=== PATIENT | female | born 1985 | race Caucasian/White ===

== ENCOUNTER → 2018-12-20 | Outpatient (CLI) | payer OTHER ==
[2018-12-20 11:52] LABS: BASO # 0.1 10^3/uL (0.0-0.2); BASO % 0.9 % (0.0-1.0); EOS # 0.2 10^3/uL (0.0-0.50); EOS % 3.5 % (0.0-3.0); HEMATOCRIT 42.1 % (36.0-47.0); HEMOGLOBIN 14.4 g/dl (12.0-15.5); LYMPH # 1.7 10^3/uL (1.5-4.5); LYMPH % 32.2 % (24.0-44.0); MEAN CORPUSCULAR HEMOGLOBIN 30.3 pg (27.0-33.0); MEAN CORPUSCULAR HGB CONC 34.2 g/dl (32.0-36.5); MEAN CORPUSCULAR VOLUME 88.6 fl (80.0-96.0); MONO # 0.4 10^3/uL (0.0-0.8); MONO % 7.4 % (0.0-5.0); NEUTROPHILS % 55.6 % (36.0-66.0); PLATELET COUNT, AUTOMATED 162 10^3/uL (150-450); RED BLOOD COUNT 4.75 10^6/uL (4.00-5.40); WHITE BLOOD COUNT 5.4 10^3/uL (4.0-10.0)
[2018-12-20 12:52] LABS: BLOOD UREA NITROGEN 14 MG/DL (7-18); CALCIUM LEVEL 8.9 MG/DL (8.5-10.1); CARBON DIOXIDE LEVEL 30 MEQ/L (21-32); CHLORIDE LEVEL 104 MEQ/L (98-107); CREATININE FOR GFR 0.59 MG/DL (0.55-1.30); FREE T4 0.92 NG/DL (0.76-1.46); GLOMERULAR FILTRATION RATE > 60.0 (>60); GLUCOSE, FASTING 78 MG/DL (70-100); POTASSIUM SERUM 4.1 MEQ/L (3.5-5.1); SODIUM LEVEL 140 MEQ/L (136-145)
== END ==
LOC: M LRY 09:32
PROVIDERS: ATTEND Physician Assistant
DX: F41.9 Anxiety disorder, unspecified (principal)

== ENCOUNTER → 2019-01-24 | Outpatient (CLI) | payer OTHER ==
--- NOTE | 2019-01-24 11:00 | REP ---
Clinical: Right inguinal pain. Possible hernia. Technique: Real time hassan scale and color evaluation using linear high frequency transducer. Findings: Ultrasound examination demonstrates a small fat containing right inguinal hernia. Inguinal defect measures approximately 5.7 - 6.1 mm. No associated bowel herniation is appreciated. Impression: Small nonreducible fat-containing right inguinal hernia. Electronically Signed by Shaun Merchant MD 01/24/2019 10:51 A
== END ==
LOC: M RAD 09:44
PROVIDERS: ATTEND Surgery
DX: K40.90 Unilateral inguinal hernia, without obstruction or gangrene, not specified as recurrent (principal)

== ENCOUNTER 2019-03-14 10:22 | Day surgery (SDC) | payer OTHER ==
[~2019-03-14] VITALS: Ht 172.7 cm; Wt 65.8 kg
[~2019-03-14 10:22] MED LIST: LR 1,000 ML IV ONE; PRENTAB55 PO
[2019-03-14] MEDS ORDERED: propofoL 200 MG/20 ML VIAL As Ordered ONE (10:54)
[2019-03-14] MEDS ORDERED: ACETAMINOPHEN 1000MG 100ML IV BTL (OFIRMEV) (J0131 PER 10MG) As Ordered ONE (10:54)
[2019-03-14] MEDS ORDERED: ONDANSETRON 4MG/2ML VIAL (J2405) As Ordered ONE ×2 (10:54→14:47)
[2019-03-14] MEDS ORDERED: ROCURONIUM BROMIDE 50 MG/5 ML VIAL As Ordered ONE ×2 (10:54→13:16)
[2019-03-14] MEDS ORDERED: LIDOCAINE 2% INJ 100 MG/5 ML SDV (FOR ANES.) As Ordered ONE (10:54)
[2019-03-14] MEDS ORDERED: dexameTHASONE 4 MG/ML 1ML VIAL (J1100) As Ordered ONE (10:54)
[2019-03-14 11:06] LABS: URINE PREG TEST NEGATIVE (NEGATIVE)
[2019-03-14] MEDS ORDERED: fentaNYL 250 MCG/5 ML INJECTION (J3010) As Ordered ONE (11:56)
[2019-03-14] MEDS ORDERED: MIDAZOLAM INJ 2 MG/2 ML VIAL (J2250) As Ordered ONE (11:56)
[2019-03-14] MEDS ORDERED: BUPIVACAINE HCL 0.25% 30 ML VIAL As Ordered ONE (12:01)
[2019-03-14] MEDS ORDERED: NORC1TAB7 PO (12:03)
[2019-03-14] MEDS ORDERED: SCOPOLAMINE 1MG TRANSDERMAL PATCH As Ordered ONE (12:13)
[2019-03-14] MEDS ORDERED: SCOPOLAMINE 1MG TRANSDERMAL PATCH TOP ONE (13:00)
[2019-03-14] MEDS ORDERED: GLYCOPYRROLATE INJ 0.2 MG/ML 2 ML VIAL As Ordered ONE (13:02)
[2019-03-14] MEDS ORDERED: NEOSTIGMINE 10 MG/10 ML VIAL (J2710) As Ordered ONE (13:02)
[2019-03-14] MEDS ORDERED: KETOROLAC 60 MG/2 ML VIAL (J1885) As Ordered ONE (13:04)
[2019-03-14] MEDS ORDERED: oxyCODONE 5MG TAB As Ordered ONE (14:47)
[2019-03-14] MEDS: ONDANSETRON 4MG/2ML VIAL (J2405) IV PRN ×2 (14:54→15:35)
[2019-03-14] MEDS: oxyCODONE 5MG TAB PO PRN ×2 (15:15→16:06)
[2019-03-14] MEDS ORDERED: NORCO, ANEXSIA 5/325MG TABLET (HYDROcodone/ACETAMINOPHEN) PO PRN (15:45)
[2019-03-14] MEDS ORDERED: LR 1,000 ML IV SCH (15:45)
[2019-03-14] MEDS ORDERED: ACETAMINOPHEN TAB 650MG DOSE (2X325MG) PO PRN (15:45)
[2019-03-14] MEDS ORDERED: fentaNYL 100 MCG/2 ML INJECTION (J3010) IV PRN (15:45)
[2019-03-14] MEDS ORDERED: METOCLOPRAMIDE INJ 10MG/2ML VIAL (J2765) As Ordered ONE (15:53)
[2019-03-14] MEDS ORDERED: METOCLOPRAMIDE INJ 10MG/2ML VIAL (J2765) IV PRN (16:00)
[2019-03-14 18:00] VITALS: BP 109/70
--- NOTE | 2019-03-17 09:04 | RO ---
DATE OF PROCEDURE: 03/14/2019 PREOPERATIVE DIAGNOSIS: Right inguinal hernia. POSTOPERATIVE DIAGNOSIS: Small indirect right inguinal hernia of preperitoneal fat. PROCEDURE PERFORMED: Is a robotic-assisted laparoscopic right inguinal hernia repair with mesh. SURGEON: Dr. Faustin SUPERVISOR [employer]: PRAVEEN Parra who was instrumental in assisting with trocar placement, management of the robotic instruments and closure of the incisions. ANESTHESIA: General. INDICATIONS FOR PROCEDURE: The patient 33-year-old woman who during a recent had noted an intermittent bulge in the right inguinal area. Her description was perfectly consistent with a small inguinal hernia. On physical examination, a hernia defect was not palpable. She is now for a robotic-assisted laparoscopic right inguinal hernia repair. OPERATIVE PROCEDURE: The patient was placed on the operating table in a supine position. She was placed under general endotracheal anesthesia. The patient's abdomen was prepped and draped in a sterile fashion. 0.25% Marcaine was infiltrated at each of the trocar sites as necessary. An initial incision was made approximately 2-3 cm above the umbilicus and approximately 2-3 cm to the left of the midline. A Veress needle was inserted and after positive hanging drop test the abdomen was insufflated with carbon dioxide gas. A 8 mm robotic port was placed over the laparoscope and advanced through the abdominal wall without difficulty. Initial examination showed a normal liver and visualized portions of the small and large bowel and stomach appeared normal. Inspection down in the lower abdomen and pelvis showed no definite peritoneal sac on either the right or left. A second 8 mm port was placed in the right midabdomen and a third in the left midabdomen. The patient cart of the XI robot was brought into position and docked to the camera port. Targeting took place on the mid pelvis and the additional arms were docked and instruments placed. The patient had been tilted slightly to a Trendelenburg position. I then moved to the control console and proceeded with the robotic portion of the procedure. Given her very typical history of findings of a hernia, I elected to proceed with repair. An arcuate incision was made in the peritoneum in the right lower quadrant to expose the inguinal hernia region. The peritoneal flap was developed from the superior to inferior. The inferior epigastric vessels were clearly identified and preserved. The round ligament was identified coursing into the internal inguinal ring. There was some preperitoneal fat identified within the internal ring and this was withdrawn and a portion of this was excised and placed into the lower abdomen for later removal. The internal ring did appear slightly dilated. The fascial ligament medially was identified. A medium Bard right-sided 3-D Max light mesh was selected and this was inserted into the abdomen and placed across the inguinal area beneath the peritoneal flap. A single 2-0 Vicryl suture was placed to fix this medially to the ligament. This appeared to lie nicely across the area of the inguinal floor internally. A single suture of 2-0 Vicryl was placed in the peritoneal flap to close a small defect at the edge of the round ligament. The peritoneal flap was then closed with a running suture of 2-0 absorbable V-Loc suture. The closure was excellent. The needles were removed and accounted for. The piece of removed preperitoneal fat was removed from the abdomen as well. The patient was returned to a flat position. The robotic instruments were removed, and the abdomen deflated and the robot undocked. The three trocar sites were closed with buried Vicryl sutures and Steri-Strips in light dressings were applied. The patient tolerated the procedure well without apparent complication. She was awakened in the operating room, extubated, moved to the recovery room in stable condition.
== END 2019-03-14 18:10 | disposition home or self-care (01) ==
LOC: M SDC 10:22
PROVIDERS: ATTEND Surgery
DX: K40.90 Unilateral inguinal hernia, without obstruction or gangrene, not specified as recurrent (principal)
CPT/HCPCS: 49650; 84703; C1781; J0131; J1100; J1885; J2405; J2710; J2765; J3010

== ENCOUNTER → 2019-06-20 | Outpatient (REF) | payer OTHER ==
[~2019-06-20] MED LIST changes: -LR 1,000 ML IV ONE; +NORC1TAB7 PO
[2019-06-20 13:48] LABS: HEMATOCRIT 42.1 % (36.0-47.0); HEMOGLOBIN 14.4 g/dl (12.0-15.5); MEAN CORPUSCULAR HEMOGLOBIN 30.3 pg (27.0-33.0); MEAN CORPUSCULAR HGB CONC 34.2 g/dl (32.0-36.5); MEAN CORPUSCULAR VOLUME 88.6 fl (80.0-96.0); PLATELET COUNT, AUTOMATED 192 10^3/uL (150-450); RED BLOOD COUNT 4.75 10^6/uL (4.00-5.40); WHITE BLOOD COUNT 8.8 10^3/uL (4.0-10.0)
[2019-06-20 13:59] LABS: HCG, SERUM QUANTITATIVE 332 MIU/ML
[2019-06-21 10:15] LABS: HIV 1&2 SCREEN CENTAUR NEGATIVE (NEGATIVE)
[2019-06-21 12:01] LABS: RUBELLA IgG QUALITATIVE IMMUNE (IMMUNE)
== END ==
LOC: M LAB REF 12:49
PROVIDERS: ATTEND Nurse Practitioner Women's Health
DX: O36.80X0 Pregnancy with inconclusive fetal viability, not applicable or unspecified (principal)

== ENCOUNTER → 2019-10-19 | Outpatient (CLI) | payer OTHER ==
--- NOTE | 2019-10-19 20:07 | REP ---
Clinical: Anatomical evaluation. Comparison: None . Findings: Examination demonstrates a single live intrauterine in transverse (head to maternal right) presentation. motion is identified by technologist. Placenta is noted anterior and grade I without evidence for placenta previa or abruption. Amniotic fluid volume is normal. Cervix measures 3.7 cm in length and appears closed. No evidence for nuchal cord. Gestational age by current measurements 20 weeks 6 days with KELVIN 03/01/2020 . FHR equals 149 beats per minute. BPD 4.9 cm 20 weeks 6 days HC 18.1 cm 20 weeks 4 days AC 16.2 cm 21 weeks 2 days FL 3.7 cm 21 weeks 5 days HL 3.5 cm 22 weeks 1 day HC/AC ratio 1.12 Estimated weight 419 grams ( 63rd percentile). Anatomical assessment demonstrates normal structures including cranium, choroid plexus, cavum, cerebellum/posterior fossa, facial features, lungs, four-chamber heart/ventricular outflow tracts, diaphragm, stomach, cord insertion/three-vessel cord, kidneys/bladder, spine, and extremities. Impression: Single live intrauterine in transverse lie demonstrating appropriate estimated weight. Anatomical assessment is complete and normal. No gross abnormalities are identified. Electronically Signed by Shaun Merchant MD 10/19/2019 07:58 P
== END ==
LOC: M WHC 11:06
PROVIDERS: ATTEND Advanced Practice Midwife
DX: Z36.3 Encounter for antenatal screening for malformations (principal); Z3A.20 20 weeks gestation of pregnancy

== ENCOUNTER → 2019-11-28 | Outpatient (REF) | payer OTHER ==
[2019-11-28 11:27] LABS: HEMATOCRIT 37.7 % (36.0-47.0); HEMOGLOBIN 12.9 g/dl (12.0-15.5); MEAN CORPUSCULAR HEMOGLOBIN 30.2 pg (27.0-33.0); MEAN CORPUSCULAR HGB CONC 34.2 g/dl (32.0-36.5); MEAN CORPUSCULAR VOLUME 88.3 fl (80.0-96.0); PLATELET COUNT, AUTOMATED 146 10^3/uL (150-450); RED BLOOD COUNT 4.27 10^6/uL (4.00-5.40); WHITE BLOOD COUNT 9.3 10^3/uL (4.0-10.0)
== END ==
LOC: M PLALAB 08:20
PROVIDERS: ATTEND Advanced Practice Midwife
DX: Z34.81 Encounter for supervision of other normal pregnancy, first trimester (principal)

== ENCOUNTER → 2020-02-01 | Outpatient (REF) | payer OTHER | LOC: M SFHCWAGY 16:49 | PROVIDERS: ATTEND Advanced Practice Midwife | DX: Z34.83 Encounter for supervision of other normal pregnancy, third trimester (principal) ==

== ENCOUNTER → 2020-02-08 | Outpatient (REF) | payer OTHER | LOC: M PLALAB 09:48 | PROVIDERS: ATTEND Advanced Practice Midwife | DX: Z34.83 Encounter for supervision of other normal pregnancy, third trimester (principal) ==

== ENCOUNTER 2020-02-15 02:00 | Inpatient (IN) | payer OTHER ==
[2020-02-15] VITALS (9 sets, daily range): BP systolic 108–134; BP diastolic 67–79
[~2020-02-15] VITALS: Ht 172.7 cm; Wt 80.0 kg
[2020-02-15] MEDS ORDERED: OXYTOCIN 30 UNITS IN 0.9% NaCl 500ML IV BAG (J2590) As Ordered ONE (02:18)
[2020-02-15 02:30] LABS: HEMATOCRIT 38.4 % (36.0-47.0); HEMOGLOBIN 13.6 g/dl (12.0-15.5); MEAN CORPUSCULAR HEMOGLOBIN 30.2 pg (27.0-33.0); MEAN CORPUSCULAR HGB CONC 35.4 g/dl (32.0-36.5); MEAN CORPUSCULAR VOLUME 85.3 fl (80.0-96.0); PLATELET COUNT, AUTOMATED 154 10^3/uL (150-450); WHITE BLOOD COUNT 17.2 10^3/uL (4.0-10.0)
[2020-02-15] MEDS ORDERED: LACTATED RINGER'S 1000 ML IV ONE (02:30)
[2020-02-15] MEDS ORDERED: IBUPROFEN 800 MG TAB As Ordered ONE (03:25)
[2020-02-15] MEDS ORDERED: OXYTOCIN DRIP 30 UNITS in IV 1 EA IV SCH (04:01)
[2020-02-15] MEDS ORDERED: IBUPROFEN 800 MG TAB PO PRN (04:15)
[2020-02-15] MEDS ORDERED: DOCUSATE SODIUM 100 MG CAP PO PRN (04:15)
[2020-02-15] MEDS ORDERED: IBUPROFEN 600MG TAB PO PRN (04:15)
[2020-02-15] MEDS ORDERED: ACETAMINOPHEN 500 MG TAB PO PRN (04:15)
[2020-02-15] MEDS ORDERED: RHOGAM 300 MCG (1500 IU) INJ (J2790) IM SCH (04:15)
[2020-02-15] MEDS ORDERED: ACETAMINOPHEN TAB 650MG DOSE (2X325MG) PO PRN (04:15)
[2020-02-15] MEDS ORDERED: DIBUCAINE 1% OINTMENT 30GM TOP PRN (04:15)
[2020-02-15] MEDS ORDERED: ANUSOL HC CREAM 30GM TOP PRN (04:15)
[2020-02-15] MEDS ORDERED: LIDOCAINE 1% MDV 20ML VIAL INFIL ONE (04:15)
[2020-02-15] MEDS ORDERED: METHYLERGONOVINE MALEATE 0.2 MG TAB PO PRN (04:15)
[2020-02-15] MEDS ORDERED: MEASLES,MUMPS,RUBELLA VACCINE INJ (MMR-II) (90707) SC SCH (04:15)
--- NOTE | 2020-02-15 08:48 | HPE ---
DATE OF ADMISSION: 02/15/2020 Anastasiya is a 34-year-old 2, para 1-0-0-1. She has had 38-2/7 weeks gestation with an estimated date of confinement (EDC) of 02/27/2020 based on last period and confirmed by first trimester ultrasound. She presents to labor and delivery today with strong contractions. She reports they started at approximately 2000 and have increase in been increasing in pain and frequency. She denies vaginal bleeding or leakage of fluid. The fetus is active. care was initiated at [facility] with transfer of care to [facility] at 20 weeks gestation. Her course has been uncomplicated. OBSTETRIC HISTORY: March 2018, 38 weeks gestation, spontaneous vaginal delivery, male fetus, 6 pounds 7 ounces uncomplicated. OBSTETRIC LABS: O+, antibody screen negative, syphilis negative, gonorrhea and chlamydia negative. Hepatitis B surface antigen negative. Hepatitis C antibody nonreactive. Human immunodeficiency virus (HIV) nonreactive, rubella immune. Gestational diabetic screening normal at 91 and her Group B streptococcus (GBS) is negative. Urine culture no growth. PAST MEDICAL HISTORY: Noncontributory. SURGERIES: Hernia right knee and wisdom tooth extraction. FAMILY HISTORY: Myocardial infarction, breast cancer. SOCIAL HISTORY: The patient is . She is a nonsmoker. She denies alcohol and drug use. No history of any sexually transmitted infections and she denies history of abuse physical, sexual and emotional ALLERGIES: No known drug allergies. CURRENT MEDICATIONS: vitamin OBJECTIVE: Temperature 98, pulse 93, respirations 20, blood pressure (BP) is 127/73. She is alert and oriented x3. She appears extremely uncomfortable with her current contractions. She is deep breathing focusing and moaning with her contractions. heart rate is 140 with moderate variability. There is no accelerations and there are occasional variable decelerations. Contractions appear to be every 3-4 minutes. They do palpate moderate, abdomen is gravid, cephalic presentation with estimated weight of 7 pounds. Sterile vaginal exam: 8 cm dilated 100% effaced, minus two station. Membranes are intact. Scant show with the exam. ASSESSMENT: Intrauterine at 38-2/7 weeks, heart rate category one, active labor. PLAN: Admit the patient to labor and delivery. Routine labs. Out of bed ad janna. Saline lock at this time. The patient is contemplating an epidural; and if she chooses not to have epidural, we will perform assisted rupture of membranes to augment her labor. I do anticipate continued labor progress and a vaginal delivery. She has been verbally consented for surgery and blood products if necessary.
[2020-02-15] MEDS: PRENATAL VITAMINS CHEWABLE TABLET PO SCH (09:03)
--- NOTE | 2020-02-15 10:24 | DN ---
DATE OF DELIVERY: 02/15/2020 DELIVERY NOTE: Anastasiya is a 34-year-old, 2, para 2-0-0-2 now, was admitted to labor and delivery in active labor. She coped with her labor physiologically. She reached complete dilation at 0239 hours. She had assisted rupture of membranes for a large amount of clear fluid at 0238 hours. She pushed to a spontaneous vaginal delivery of a live female infant in right occiput anterior (GEORGI) position with restitution to occiput transverse (ROT) position at 0255 hours. There was a nuchal cord times one that was tight and reduced with a somersault maneuver at the time of delivery. The was placed on maternal abdomen crying and active. The mouth and nares were bulb suctioned. The cord was clamped times two once pulsation ceased, then cut by the father of the baby under my direction. Cord blood was obtained. Spontaneous expulsion of an intact placenta by Asher mechanism was at 0306 hours. Uterine hemostasis achieved with intravenous (IV) Pitocin rapid infusion and uterine fundal massage. Estimated blood loss 350 mL. Perineum and vagina inspected. Noted to have a first-degree perineal laceration as well as a right labial laceration. The vaginal laceration was infiltrated with 1% lidocaine and repaired with #3-0 Vicryl Rapide in the usual fashion. Right labial laceration was hemostatic. No need for any repair. Kane female weighed 2900 grams (6 pounds 6 ounces), 8 and 9. The mom is going to breastfeed her daughter and the family is undecided as the 's name at this time. At the close of delivery, lap counts, needle counts and instrument counts were correct and verified.
[2020-02-16 06:00] VITALS: BP 119/62
--- NOTE | 2020-02-16 07:28 | IPNPDOC ---
Progress Note Date of Service: Feb 16, 2020 Day#: 1 Progress Note SUBJECT: Doing well without complaints. Ambulating, voiding and pain is well-c ontrolled. Reports minimal lochia. OBJECTIVE: VITAL SIGNS: Within normal limits, afebrile. Alert and oriented times three. Abdomen: Fundus firm at U-2. Soft, NTTP. Ext: neg calf tenderness. ASSESSMENT: day #1 status post normal spontaneous vaginal delivery. Recovering in stable condition. PLAN: 1. Continue routine care 2. Discharge plans for tomorrow VS, I&O, 24H, Fishbone Vital Signs/I&O Vital Signs Date Time Temp Pulse Resp B/P (MAP) Pulse Ox O2 Delivery O2 Flow Rate FiO2 02/16/20 06:00 98.4 76 18 119/62 (81) 02/15/20 18:13 97 Room Air I&O- Last 24 Hours up to 6 AM 02/16/20 06:00 Output Total 800 ml Balance -800 ml DENA COOPER MD. Feb 16, 2020 07:28
[2020-02-16] MEDS: PRENATAL VITAMINS CHEWABLE TABLET PO SCH (07:32)
== END 2020-02-16 19:20 | disposition home or self-care (01) | DRG 807 ==
LOC: M LDO 02:00 → M LDI 02:06 → M OBS 04:53
PROVIDERS: ADMIT Advanced Practice Midwife; ATTEND Advanced Practice Midwife
PROC: 10E0XZZ Delivery of Products of Conception, External Approach (ICD-10-PCS; principal; 2020-02-15)
PROC: 10907ZC Drainage of Amniotic Fluid, Therapeutic from Products of Conception, Via Natural or Artificial Opening (ICD-10-PCS; 2020-02-15)
PROC: 0HQ9XZZ Repair Perineum Skin, External Approach (ICD-10-PCS; 2020-02-15)
DX: O69.1XX0 Labor and delivery complicated by cord around neck, with compression, not applicable or unspecified (principal); Z37.0 Single live birth; Z3A.38 38 weeks gestation of pregnancy; O70.0 First degree perineal laceration during delivery

== ENCOUNTER → 2020-11-01 | Outpatient (CLI) | payer OTHER ==
[2020-11-01 14:02] LABS: BASO % 0.7 % (0.0-1.0); EOS # 0.3 10^3/uL (0.0-0.5); HEMATOCRIT 44.7 % (36.0-47.0); HEMOGLOBIN 15.2 g/dl (12.0-15.5); LYMPH # 1.6 10^3/uL (1.5-5.0); LYMPH % 26.5 % (24.0-44.0); MEAN CORPUSCULAR HEMOGLOBIN 30.2 pg (27.0-33.0); MEAN CORPUSCULAR VOLUME 88.7 fl (80.0-96.0); MONO # 0.4 10^3/uL (0.0-0.8); MONO % 7.3 % (2.0-8.0); NEUTROPHILS # 3.6 10^3/uL (1.5-8.5); NEUTROPHILS % 60.3 % (36.0-66.0); PLATELET COUNT, AUTOMATED 183 10^3/uL (150-450); RED BLOOD COUNT 5.04 10^6/uL (4.00-5.40)
[2020-11-01 14:43] LABS: ALBUMIN 3.9 GM/DL (3.2-5.2); ALT/SGPT 20 U/L (12-78); BLOOD UREA NITROGEN 13 MG/DL (7-18); CALCIUM LEVEL 9.1 MG/DL (8.5-10.1); CARBON DIOXIDE LEVEL 30 MEQ/L (21-32); CHLORIDE LEVEL 103 MEQ/L (98-107); CREATININE FOR GFR 0.68 MG/DL (0.55-1.30); FREE T4 0.93 NG/DL (0.76-1.46); GLOMERULAR FILTRATION RATE > 60.0 (>60); GLUCOSE, FASTING 98 MG/DL (70-100); POTASSIUM SERUM 4.1 MEQ/L (3.5-5.1); SODIUM LEVEL 138 MEQ/L (136-145); TOTAL PROTEIN 7.1 GM/DL (6.4-8.2)
[2020-11-01 14:47] LABS: TOTAL 25(OH) VITAMIN D 24.4 NG/ML (30.0-100.0); VITAMIN B12 LEVEL 437 PG/ML
[2020-11-01 14:49] LABS: FOLATE 15.3 NG/ML
[2020-11-02 16:07] LABS: Lyme Disease IgG/IgM Antibodie <0.91 ISR (0.00-0.90); Lyme Disease IgM Ab Quantitati <0.80 index (0.00-0.79)
== END ==
LOC: M PLALAB 10:20
PROVIDERS: ATTEND Physician Assistant
DX: R53.83 Other fatigue (principal)

== ENCOUNTER → 2021-08-14 | Outpatient (CLI) | payer OTHER ==
[2021-08-14 14:06] LABS: BASO % 0.5 % (0.0-1.0); EOS % 0.5 % (0.0-3.0); HEMATOCRIT 41.8 % (36.0-47.0); HEMOGLOBIN 14.5 g/dl (12.0-15.5); LYMPH # 2.1 10^3/uL (1.5-5.0); LYMPH % 26.7 % (24.0-44.0); MEAN CORPUSCULAR HEMOGLOBIN 30.3 pg (27.0-33.0); MEAN CORPUSCULAR HGB CONC 34.7 g/dl (32.0-36.5); MEAN CORPUSCULAR VOLUME 87.3 fl (80.0-96.0); MONO # 0.5 10^3/uL (0.0-0.8); MONO % 6.1 % (2.0-8.0); NEUTROPHILS # 5.2 10^3/uL (1.5-8.5); NEUTROPHILS % 65.8 % (36.0-66.0); PLATELET COUNT, AUTOMATED 194 10^3/uL (150-450); RED BLOOD COUNT 4.79 10^6/uL (4.00-5.40); WHITE BLOOD COUNT 7.9 10^3/uL (4.0-10.0)
[2021-08-14 15:21] LABS: HEPATITIS C VIRUS ABY INDEX < 0.0 INDEX (<0.8); HIV 1&2 SCREEN CENTAUR NEGATIVE (NEGATIVE)
== END ==
LOC: M PLALAB 11:05
PROVIDERS: ATTEND Obstetrics & Gynecology
DX: Z34.81 Encounter for supervision of other normal pregnancy, first trimester (principal)

== ENCOUNTER → 2021-08-19 | Outpatient (CLI) | payer OTHER | LOC: M PLALAB 08:42 | PROVIDERS: ATTEND Obstetrics & Gynecology | DX: Z34.81 Encounter for supervision of other normal pregnancy, first trimester (principal); Z3A.00 Weeks of gestation of pregnancy not specified ==

== ENCOUNTER → 2021-09-30 | Outpatient (CLI) | payer OTHER | LOC: M RAD 08:50 | PROVIDERS: ATTEND Obstetrics & Gynecology | DX: Z36.89 Encounter for other specified antenatal screening (principal); Z3A.14 14 weeks gestation of pregnancy ==

== ENCOUNTER → 2021-10-07 | Outpatient (CLI) | payer OTHER | LOC: M WHC 07:59 | PROVIDERS: ATTEND Advanced Practice Midwife | DX: Z34.92 Encounter for supervision of normal pregnancy, unspecified, second trimester (principal) ==

== ENCOUNTER → 2021-10-27 | Outpatient (CLI) | payer OTHER | LOC: M WHC 07:19 | PROVIDERS: ATTEND Advanced Practice Midwife | DX: Z34.92 Encounter for supervision of normal pregnancy, unspecified, second trimester (principal) ==